=== PATIENT | female | born 1945 | race Caucasian/White ===

== ENCOUNTER 2019-12-08 08:27 | Outpatient (CLI) | payer MEDICARE, OTHER, SELFPAY ==
--- NOTE | 2019-12-08 08:32 | MM_ITS ---
WS: [id number] BILATERAL DIGITAL SCREENING MAMMOGRAPHY WITH CAD CLINICAL INFORMATION: SCREENING HISTORY: Screening mammogram. No current complaints. COMPARISON: September 03, 2018 TECHNIQUE: Bilateral CC and MLO views. FINDINGS: The breasts are composed of heterogeneous fibroglandular density tissue, which can limit the detectio n of small underlying mass lesions. Vascular calcification. No suspicious mass, asymmetry, calcificat ions, or architectural distortion. No evidence of malignancy. MM/[place] [id number] IMPRESSION: BI-RADS: 2-Benign FOLLOW UP: 1 Year Follow-up Recommend return to annual screening mammography.
== END 2019-12-08 08:28 | disposition home or self-care (01) ==
LOC: RADSHAW 08:27
PROVIDERS: Family Provider Nurse Practitioner Family; PCP Registered Nurse; Visit Provider Registered Nurse
DX: Z12.31 Encounter for screening mammogram for malignant neoplasm of breast (principal)
CPT/HCPCS: 77067

== ENCOUNTER 2021-01-10 12:43 | Outpatient (CLI) | payer MEDICARE, OTHER, SELFPAY ==
--- NOTE | 2021-01-10 12:51 | MM_ITS ---
WS: [id number] BILATERAL SCREENING DIGITAL MAMMOGRAM WITH CAD HISTORY: SCREENING COMPARISON: 12/08/2019, 09/03/2018 Bilateral CC and MLO views submitted. Computer aided detection analyzed. Breast composition: The breasts are heterogeneously dense, which may obscure small masses. No suspici ous masses, microcalcifications or architectural distortion. MM/[place] [id number] IMPRESSION: BI-RADS: 1-Negative FOLLOW UP: 1 Year Follow-up
== END 2021-01-10 12:44 | disposition home or self-care (01) ==
LOC: RADSHAW 12:45
PROVIDERS: PCP Registered Nurse; Visit Provider Registered Nurse
DX: Z12.31 Encounter for screening mammogram for malignant neoplasm of breast (principal)
CPT/HCPCS: 77067

== ENCOUNTER → 2021-02-09 09:19 | Outpatient (BNVA) | payer MEDICARE, OTHER, SELFPAY | PROVIDERS: PCP Registered Nurse; Visit Provider Registered Nurse | DX: Z00.00 Encounter for general adult medical examination without abnormal findings (principal); E78.5 Hyperlipidemia, unspecified; I10 Essential (primary) hypertension; F41.9 Anxiety disorder, unspecified | CPT/HCPCS: 80053; 80061; 85025 ==

== ENCOUNTER 2022-02-01 13:35 | Outpatient (CLI) | payer MEDICARE, SELFPAY ==
--- NOTE | 2022-02-01 13:47 | MM_ITS ---
WS: [id number] BILATERAL 3D TOMOSYNTHESIS DIGITAL SCREENING MAMMOGRAPHY WITH CAD CLINICAL INFORMATION: SCREENING HISTORY: Screening mammogram. No current complaints. COMPARISON: January 10, 2021 TECHNIQUE: Bilateral CC and MLO views. FINDINGS: The breasts are composed of heterogeneous fibroglandular density tissue, which can limit the detectio n of small underlying mass lesions. Punctate and lucent centered calcifications. Vascular calcificati on. No suspicious mass, asymmetry, calcifications, or architectural distortion. No evidence of malign sergio. MM/[place] [id number] IMPRESSION: BI-RADS: 2-Benign FOLLOW UP: 1 Year Follow-up Recommend return to annual screening mammography.
== END 2022-02-01 13:36 | disposition home or self-care (01) ==
LOC: RAD 13:36
PROVIDERS: PCP Registered Nurse; Visit Provider Registered Nurse
DX: Z12.31 Encounter for screening mammogram for malignant neoplasm of breast (principal)
CPT/HCPCS: 77063; 77067

== ENCOUNTER → 2022-10-12 14:18 | Outpatient (BNVA) | payer MEDICARE, SELFPAY | PROVIDERS: PCP Registered Nurse; Visit Provider Registered Nurse | DX: E78.5 Hyperlipidemia, unspecified (principal); I10 Essential (primary) hypertension; M19.90 Unspecified osteoarthritis, unspecified site; E53.8 Deficiency of other specified B group vitamins; E55.9 Vitamin D deficiency, unspecified | CPT/HCPCS: 80053; 80061; 82306; 82607; 85025; 85651; 86140 ==

== ENCOUNTER 2023-02-06 12:06 | Outpatient (CLI) | payer MEDICARE, SELFPAY ==
--- NOTE | 2023-02-06 12:16 | MM_ITS ---
WS: [id number] SCREENING DIGITAL BREAST TOMOSYNTHESIS MAMMOGRAM WITH CAD HISTORY: SCREENING COMPARISON: 02/01/2022, 01/10/2021 Bilateral CC and MLO with tomosynthesis and synthetic mammography submitted. Computer aided detection analyzed. Breast composition: There are scattered areas of fibroglandular density. Spiculated asymmetry in the medial RIGHT breast inferior to the nipple. Seen best on the CC projection. Not definitely seen on th e lateral. Benign calcifications and arterial calcifications. MM/[place] [id number] IMPRESSION: BI-RADS: 0-Incomplete: Need additional imaging evaluation FOLLOW UP: Need Additional Imaging RIGHT breast: Spot compression views (CC ). True ML. Ultrasound to follow if ab normality persists.
== END 2023-02-06 12:07 | disposition home or self-care (01) ==
PROVIDERS: PCP Registered Nurse; Visit Provider Registered Nurse
DX: Z12.31 Encounter for screening mammogram for malignant neoplasm of breast (principal)
CPT/HCPCS: 77063; 77067

== ENCOUNTER 2023-02-20 10:23 | Outpatient (CLI) | payer MEDICARE, SELFPAY ==
--- NOTE | 2023-02-20 10:34 | MM_ITS ---
WS: [id number] ADDITIONAL VIEWS RIGHT MAMMOGRAM WITH DIGITAL BREAST TOMOSYNTHESIS. RIGHT BREAST ULTRASOUND HISTORY: ABNORMAL MAMMO COMPARISON: 02/06/2023, 02/01/2022 and 01/10/2021 RIGHT MAMMOGRAM: Spot compression views and true ML with digital breast tomosynthesis and SM. Subtle area of distortion persists along the medial RIGHT breast near 3:00. Area is within the anteri or to mid breast. RIGHT BREAST ULTRASOUND 2-D and color Doppler imaging submitted. There is a small hypoechoic mass which is irregularly shaped measuring 6 x 4 x 8 mm. Mass at 4:00, 1 cm from the nipple a lot of shadowing. This corresponds in size to the mammographic abnormality. Not spiculated in appearance as suspected. MM/[place] [id number] IMPRESSION: BI-RADS: 4-Suspicious Finding-Biopsy Should Be Considered FOLLOW UP: Biopsy Recommended Notified MEÑO Cameron at 02/20/2023 11:53 AM.
== END 2023-02-20 10:24 | disposition home or self-care (01) ==
LOC: RAD 10:26
PROVIDERS: PCP Registered Nurse; Visit Provider Registered Nurse
DX: N63.14 Unspecified lump in the right breast, lower inner quadrant (principal)
CPT/HCPCS: 76642; 77061; G0279

== ENCOUNTER 2023-02-28 11:36 | Outpatient (CLI) | payer MEDICARE, SELFPAY ==
--- NOTE | 2023-02-28 12:45 | US_ITS ---
WS: [id number] ULTRASOUND-GUIDED RIGHT BREAST BIOPSY CLINICAL INFORMATION: N63.10 - Unspecified lump in the right breast, unspecifie... COMPARISON: 02/20/23 FINDINGS: The procedure including risks, benefits, and complications were discussed with the patient who agreed to proceed. Using sterile technique patient was prepped and draped in the usual sterile fashion. Aft er 1% lidocaine utilizing real-time ultrasound guidance 5 14-gauge cores were obtained of the RIGHT b reast lesion at the 4 o'clock position 1 cm from the nipple. Subsequently a titanium clip was placed in the biopsy cavity. No immediate complications. Pathology demonstrates: A. Breast, right, 4 o'clock, 1 cm from nipple, ultrasound-guided biopsy: - Invasive ductal carcinoma, moderately differentiated. - Dominguez Holt grade 2 (score 6). - Breast profile has been performed and will be reported separately. US/[place] [id number] IMPRESSION: 1. Uncomplicated ultrasound-guided RIGHT breast biopsy. 2. The pathology demonstrates invasive ductal carcinoma. 3. Breast prognostic profile is pending. 4. Recommend breast surgery consultation for further evaluation. BI-RADS: 6-Known Biopsy-Proven Malignancy FOLLOW UP: Surgical Biopsy Recommended Recommend Breast surgery consultation for further evaluation.
[2023-03-05 09:37] LABS: Breast Profile ER,PR,HER2,Ki-6 See Report
== END 2023-02-28 11:37 | disposition home or self-care (01) ==
PROVIDERS: PCP Registered Nurse; Visit Provider Registered Nurse
DX: C50.311 Malignant neoplasm of lower-inner quadrant of right female breast (principal)
CPT/HCPCS: 19083; 88305; 88361; 88374

== ENCOUNTER 2023-03-07 14:51 | Oncology outpatient (recurring) (ONCR) | payer MEDICARE, SELFPAY | END 2023-03-30 23:59 | disposition home or self-care (01) | PROVIDERS: PCP Registered Nurse; Visit Provider Internal Medicine Hematology & Oncology | DX: C50.811 Malignant neoplasm of overlapping sites of right female breast (principal); Z17.0 Estrogen receptor positive status [ER+] | CPT/HCPCS: 99204 ==

== ENCOUNTER → 2023-05-01 10:51 | Outpatient (BNVA) | payer MEDICARE, SELFPAY | PROVIDERS: PCP Registered Nurse; Visit Provider Registered Nurse | DX: E55.9 Vitamin D deficiency, unspecified (principal); E78.5 Hyperlipidemia, unspecified; I10 Essential (primary) hypertension | CPT/HCPCS: 80053; 80061; 82306; 85025 ==

== ENCOUNTER 2023-05-28 14:28 | Outpatient (CLI) | payer MEDICARE, SELFPAY ==
--- NOTE | 2023-05-28 14:33 | XR_ITS ---
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 This corresponds to a T score score of -2.4 and Z score of -0.9. Left femoral neck bone mineral density measures 0.655 g/cm2. This corresponds to a T score of -2.8 an d Z score of -1.2. Right femoral neck bone mineral density measures 0.730 g/cm2. This corresponds to a T score -2.2of an d Z score of -0.6. Mean femoral neck bone mineral density measures 0.693 g/cm2. This corresponds to a T score of -2.5 an d Z score of -0.9. IMPRESSION: Osteopenia lumbar spine approaching osteoporosis. Osteoporosis femoral necks at the lower end of the range.. Patient's FRAX calculated 10 year probability for major osteoporotic fracture is 28.9% and osteoporot ic hip fracture is 10.1%. Bone mineral density in the lumbar spine decrease -3.4% since 2013 Bone mineral density in the femoral necks decrease -5.1% since 2013
== END 2023-05-28 14:29 | disposition home or self-care (01) ==
PROVIDERS: PCP Registered Nurse; Visit Provider Internal Medicine Hematology & Oncology
DX: Z13.820 Encounter for screening for osteoporosis (principal); M81.0 Age-related osteoporosis without current pathological fracture; M85.88 Other specified disorders of bone density and structure, other site; C50.919 Malignant neoplasm of unspecified site of unspecified female breast
CPT/HCPCS: 77080

== ENCOUNTER → 2023-08-28 14:35 | Outpatient (BNVA) | payer MEDICARE, SELFPAY | PROVIDERS: PCP Registered Nurse; Visit Provider Registered Nurse | DX: R07.9 Chest pain, unspecified (principal); I10 Essential (primary) hypertension | CPT/HCPCS: 93005 ==

== ENCOUNTER 2023-08-30 12:18 | Outpatient (CLI) | payer MEDICARE, SELFPAY ==
--- NOTE | 2023-08-30 | ECG_ITS ---
[facility] Test Date: 2023-08-30 Pat Name: Ankita Rosenthal Department: Room: Gender: Female Gyn: : 1945 Requested By: Anand Levine Order Number: [id number] Kirby MD: Del Jo M.D. Interpretive Statements NAME OF STUDY: TREADMILL STRESS TEST INDICATION: Chest Pain PROCEDURE: At the baseline, the patient's blood pressure was 135/100 with a heart rate of 85. The baseline electrocardiogram showed normal sinus rhythm with prominent R wave in lead V1 suggesting right ventricular hypertrophy. Poor R wave progression. Baseline artifact The patient exercised for 3 minutes and 17 seconds on a standard Giovani protocol. Patient attained a maximum heart rate of 149 beats per minute(104% of the maximum predicted heart rate) with a blood pressure at the peak exercise was not obtained. The EKG at the peak exercise revealed is uninterpretable due to heavy artifact. Patient did not have any chest pain or any significant cardiac arrhythmias with the exercise During the recovery phase, there were no new changes. Some nonspecific T wave changes are noted Blood pressure at the end of the recovery phase was 152/92 mm Hg with a heart rate of 83 per minute. CONCLUSION: 1. Possibly no significant EKG changes with exercise. Because of the heavy artifacts in theexercise EKG is uninterpretable. 2. No exercise-induced chest pain or cardiac arrhythmia 3. Markedly impaired exercise tolerance, attained a maximum of 4.6 METs Electronically Signed On 09-13-2023 9:27:39 [employer]TER [employer] by Del Jo M.D. [email or web address]
[2023-08-30 13:16] VITALS: BMI 27.9
[2023-08-30 15:18] VITALS: BP 156/96; PULSE 82
== END 2023-08-30 12:19 | disposition home or self-care (01) ==
LOC: CDL 12:18
PROVIDERS: PCP Registered Nurse; Visit Provider Registered Nurse
DX: R07.9 Chest pain, unspecified (principal)
CPT/HCPCS: 93017

== ENCOUNTER → 2024-10-27 10:08 | Outpatient (BNVA) | payer MEDICARE, SELFPAY | PROVIDERS: PCP Registered Nurse; Visit Provider Registered Nurse | DX: I10 Essential (primary) hypertension (principal) | CPT/HCPCS: 80048; 80061; 85025 ==

== ENCOUNTER → 2024-12-26 10:18 | Outpatient (BNVA) | payer MEDICARE, SELFPAY | PROVIDERS: PCP Registered Nurse; Visit Provider Orthopaedic Surgery | DX: M25.562 Pain in left knee (principal); M25.561 Pain in right knee; M70.61 Trochanteric bursitis, right hip | CPT/HCPCS: 73560; 73565; 99204 ==

== ENCOUNTER 2024-12-30 05:00 | Outpatient (RCR) | payer MEDICARE, SELFPAY | END 2025-01-28 23:59 | disposition home or self-care (01) | LOC: WPT 05:00 | PROVIDERS: PCP Registered Nurse; Visit Provider Orthopaedic Surgery | DX: M17.0 Bilateral primary osteoarthritis of knee (principal) | CPT/HCPCS: 97110; 97112; 97161; 97530 ==

== ENCOUNTER → 2025-01-16 10:50 | Outpatient (BNVA) | payer MEDICARE, SELFPAY | PROVIDERS: PCP Registered Nurse; Visit Provider Orthopaedic Surgery | DX: M25.561 Pain in right knee (principal); M25.562 Pain in left knee; G89.29 Other chronic pain; M70.61 Trochanteric bursitis, right hip | CPT/HCPCS: 99213 ==

== ENCOUNTER 2025-01-29 05:00 | Outpatient (RCR) | payer MEDICARE, SELFPAY | END 2025-02-28 23:55 | disposition home or self-care (01) | LOC: WPT 05:00 | PROVIDERS: PCP Registered Nurse; Visit Provider Orthopaedic Surgery | DX: M13.869 Other specified arthritis, unspecified knee (principal) | CPT/HCPCS: 97110; 97112; 97530 ==

== ENCOUNTER 2025-03-01 05:00 | Outpatient (RCR) | payer MEDICARE, SELFPAY | END 2025-03-30 23:59 | disposition home or self-care (01) | LOC: WPT 05:00 | PROVIDERS: PCP Registered Nurse; Visit Provider Orthopaedic Surgery | DX: M17.0 Bilateral primary osteoarthritis of knee (principal) | CPT/HCPCS: 97110; 97112; 97530 ==

== ENCOUNTER → 2025-03-24 12:33 | Outpatient (BNVA) | payer MEDICARE, SELFPAY | PROVIDERS: PCP Registered Nurse; Visit Provider Orthopaedic Surgery | DX: M17.0 Bilateral primary osteoarthritis of knee (principal); M70.61 Trochanteric bursitis, right hip | CPT/HCPCS: 99213 ==

== ENCOUNTER → 2025-06-16 11:30 | Outpatient (BNVA) | payer MEDICARE, SELFPAY | PROVIDERS: PCP Registered Nurse; Visit Provider Orthopaedic Surgery | DX: M25.562 Pain in left knee (principal); G89.29 Other chronic pain | CPT/HCPCS: 20610; 99213; J3301; J3490; J9999 ==

== ENCOUNTER → 2025-06-29 11:12 | Outpatient (BNVA) | payer MEDICARE, SELFPAY | PROVIDERS: PCP Registered Nurse; Visit Provider Orthopaedic Surgery | DX: M17.0 Bilateral primary osteoarthritis of knee (principal) | CPT/HCPCS: 99213 ==